=== PATIENT | female | born 1980 | race Caucasian/White ===

== ENCOUNTER 2017-06-08 19:35 | Emergency (ER) | payer MEDICAID, OTHER ==
[~2017-06-08] VITALS: Ht 160 cm; Wt 73.4 kg
[2017-06-08 19:46] VITALS: Ht 160 cm; Wt 73.4 kg
--- NOTE | 2017-06-08 21:46 | ERD ---
ER Documentation Chief Complaint Chief Complaint pt reports hand for 4 days HPI 36-year-old female who presents to the emergency department for headache that has been going on and off for a couple of months. She initially told the triage that this has been going on and off for 4 days but during my history taking she stated that she has this headache for more than 4 months. She was seen by her primary care doctor for this. Also complains of right ethmoid sinus pain, congestion for a couple of days. She has no specific time and date of onset for her headache. Denies head trauma, head injury, dizziness, loss of consciousness, changes in vision, blurry vision, pain in eye movement, throat pain, difficulty swallowing, neck pain, neck stiffness, shoulder pain, chest pain, back pain, abdominal pain, nausea, vomiting, constipation, diarrhea, urinary symptoms, loss of bowel bladder control, changes in bowel bladder habits , or possibility being , trauma, injury, falls, difficulty walking, recent long travel, recent antibiotic use in the last 3 months, fever, chills. Her last menstrual period was 06/02/2017. A0. Has no past medical history. Surgical history of . No family history of heart attack before age 50. No family history of stroke before the age of 50. No family history of aneurysm. Not in any medications. ROS All systems reviewed and are negative except as per history of present illness. Medications Home Meds Active Scripts Acetaminophen* (Tylophen*) 500 Mg Capsule, 1 CAP PO Q6H Y for PAIN AND OR ELEVATED TEMP, #20 CAP Prov:CICIMANJINDERDEEPTI F 06/09/17 Amoxicillin/Potassium Clav (Amox-Clav 875-125 mg Tablet) 875-125 mg Tab, 1 TAB PO BID for 7 Days, #14 TAB Prov:CICIILABANPATIENCEAR F 06/09/17 Ibuprofen* (Motrin*) 800 Mg Tab, 800 MG PO Q8 Y for PAIN AND OR ELEVATED TEMP, # 30 TAB Prov:CICIILABANPATIENCEAR F 06/09/17 Allergies Allergies: Coded Allergies: No Known Allergy (Verified Allergy, Unknown, 04/24/07) PMhx/Soc History of Surgery: Yes (NIYAH) Anesthesia Reaction: No Hx Neurological Disorder: No Hx Respiratory Disorders: No Hx Cardiac Disorders: No Hx Psychiatric Problems: No Hx Miscellaneous Medical Probl: No Hx Alcohol Use: No Hx Substance Use: No Hx Tobacco Use: No Physical Exam Vitals Vital Signs Date Time Temp Pulse Resp B/P Pulse Ox O2 Delivery O2 Flow Rate FiO2 06/09/17 00:30 98.7 71 16 135/72 100 Room Air 06/08/17 19:46 99.1 80 16 161/83 100 Physical Exam Const: Well-appearing. Not in acute distress. Head: Atraumatic Eyes: Normal Conjunctiva. PERRLA. No pain in eye movement. No visual field loss. ENT: Normal External Ears, Nose and Mouth. Tenderness to palpation to right frontal and ethmoid sinus.Has nasal congestion. Neck: Full range of motion..~ No meningismus. No neck stiffness. No signs of meningeal irritation. Resp: Clear to auscultation bilaterally Cardio: Regular rate and rhythm, no murmurs Abd: Soft, non tender, non distended. Normal bowel sounds Skin: No petechiae or rashes Back: No midline or flank tenderness Ext: No cyanosis, or edema Neur: Awake and alert. No neurological deficits. Romberg test is negative. Psych: Normal Mood and Affect Results 24 hrs Laboratory Tests Test 06/08/17 23:34 Bedside Urine pH (LAB) 5.5 Bedside Urine Protein (LAB) Negative Bedside Urine Glucose (UA) Negative Bedside Urine Ketones (LAB) Negative Bedside Urine Blood 1+ Bedside Urine Nitrite (LAB) Negative Bedside Urine Leukocyte Esterase (L Trace Current Medications Medications (Trade) Dose Ordered Sig/Guerita Route PRN Reason Start Time Stop Time Status Last Admin Dose Admin Acetaminophen/ Hydrocodone Bitart ([place] (5/325)) 1 tab ONCE ONCE PO 06/08/17 22:00 06/08/17 22:01 DC 06/08/17 21:50 Procedures/MDM I have low suspicion for subarachnoid hemorrhage due to the patient's history that this is not the worst headache of her life and symptoms started couple of months ago and she has no specific time and date of onset. I have low suspicion for stroke due to the patient's history that she has no family history of stroke or aneurysm and she has no history of hypertension, diabetes or high cholesterol. POC urine : Negative. POC urine dip: 1+ for blood and positive for leukocyte esterase. Will be discharged with final diagnosis of mild UTI and sinusitis. Will be discharged with Augmentin. Motrin. Tylenol. Follow-up with PCP in the next 24-48 hours. Come back here in the emergency department for any new symptoms or any worsening of symptoms. All questions and concerns are answered. Patient and family member verbalized understanding and agreed with the plan of care. Hemodynamically stable on discharge. Departure Diagnosis: Primary Impression: Sinusitis Additional Impression: UTI (urinary tract infection) Condition: Stable Additional Instructions: Follow-up with PCP in the next 24-48 hours. Come back here in the emergency department for any new symptoms or any worsening of symptoms. All questions and concerns are answered. Patient and family member verbalized understanding and agreed with the plan of care. DEEPTI VALERIO Jun 08, 2017 21:46
[2017-06-08] MEDS ORDERED: HYDROCODONE/APAP (5/325) TAB PO ONE (22:00)
[2017-06-08 23:35] LABS: URINE BLOOD (Dip) POC 1+ (NEGATIVE)
[2017-06-09] MEDS ORDERED: IBUP800T25 PO (00:16)
[2017-06-09] MEDS ORDERED: ACET500C5 PO (00:17)
[2017-06-09] MEDS ORDERED: AMOX1TAB10 PO (00:17)
[2017-06-09 00:30] VITALS: BP 135/72; PULSE 71; RESP 16; TEMP 98.7
== END 2017-06-09 00:35 | disposition home or self-care (01) ==
LOC: FTE 19:35
DX: J01.90 Acute sinusitis, unspecified (principal); N39.0 Urinary tract infection, site not specified; R40.2142 Coma scale, eyes open, spontaneous, at arrival to emergency department; R40.2252 Coma scale, best verbal response, oriented, at arrival to emergency department; R40.2362 Coma scale, best motor response, obeys commands, at arrival to emergency department
CPT/HCPCS: 81003; Z7502; Z7610; 99283